=== PATIENT | female | born 1965 | race Caucasian/White ===

== ENCOUNTER 2025-03-24 15:23 | Outpatient (CLI) | payer BC, SELFPAY ==
--- OUTSIDE RECORDS SUMMARY | 2025-03-24 15:27 | XMS_ITS | Encounter Summary ---
Author Organization [facility] Address [address] [place] [address] Care Team Providers Care Label Coder Name Role Phone Angela Casper MD Primary Care Provider [phone] Encounter Details Date Type Department Care Team (Late st Contact Info) Description 03/24/2012 Telephone [facility] [address] [place] [address] Vidal Miguel PA-C [address] [place] [id number] Social History Tobacco Use Types Packs/Day Years Used Date Smoking Tobacco: Former Cigarettes 1 20 0 02/20/1992 - 02/20/2012 Smokeless Tobacco: Never Alcohol Use Standard Drinks/Week Comments No 0 (1 standard drink = 0.6 oz pur e alcohol) Comments No Sex and Gender Information Value Date Recorded Sex Assigned at Not on file Legal Sex Female 11:21 PM EST Gender Identity Not on file Sexual Orientation Not on file documented as of this encounter Functional Status * Encounter Vitals Question Answer Date of Assessment Author BP 140/80 03/26/2012 10:33 AM EDT Kristi Amador LPN Pulse 66 03/26/2012 10:33 AM EDT Kristi Amador LPN Resp 16 03/26/2012 10:33 AM EDT Kristi Amador LPN Weight 2640 03/26/2012 10:33 AM EDT Kristi Amador LPN documented as of this encounter Mental Status * Question Answer Entry Date Author BP 140/80 03/26/2012 10:33 AM EDT Kristi Amador LPN Pulse 66 03/26/2012 10:33 AM EDT Kristi Amador LPN Resp 16 03/26/2012 10:33 AM EDT Kristi Amador LPN documented in this encounter Miscellaneous Notes * Telephone Encounter - Kristi Chapin - 03/24/2012 3:01 PM EDT Tommie's pulse ox report is scanned into media documented in this encounter Plan of Treatment Not on file documented as of this encounter Visit Diagnoses Not on filedocumented in this encounter Care Teams Label Coder Relationship Specialty Start Date End Date Angela Casper MD [address] [place] [address] [address] [place] [address] PCP - General Family Medicine 01/09/11 documented as of this encounter
--- OUTSIDE RECORDS SUMMARY | 2025-03-24 15:27 | XMS_ITS | Encounter Summary ---
Author Organization [facility] Address [address] [place] [address] Care Team Providers Care Practice Support Specialist Name Role Phone Angela Casper MD Primary Care Provider [phone] Reason for Visit * Reason Onset Date Comments Medications Refill 09/26/2011 Encounter Details Date Type Department Care Team (Late st Contact Info) Description 09/26/2011 Refill [facility] [address] [place] [address] [address] [place] [address] Kristina Hayes LPN Medications Refill Social History Tobacco Use Types Packs/Day Years Used Date Smoking Tobacco: Some Days Cigarettes 1 20 Alcohol Use Standard Drinks/Week Comments No 0 (1 standard drink = 0.6 oz pur e alcohol) Comments No Sex and Gender Information Value Date Recorded Sex Assigned at Not on file Legal Sex Female 11:21 PM EST Gender Identity Not on file Sexual Orientation Not on file documented as of this encounter Plan of Treatment Not on file documented as of this encounter Visit Diagnoses Diagnosis Hypertension Unspecified essential hypertension Hyperlipidemia Other and unspecified hyperlipidemia Tobacco abuse Tobacco use disorder documented in this encounter Care Teams Practice Support Specialist Relationship Specialty Start Date End Date Angela Casper MD [facility] [address] [place] [address] PCP - General Family Medicine 01/09/11 documented as of this encounter
--- OUTSIDE RECORDS SUMMARY | 2025-03-24 15:27 | XMS_ITS | Clinical Summary ---
Author Organization [facility] Address [address] [place] [address] Care Team Providers Care Window Cutter Name Role Phone Twila Zuniga PA-C Primary Care Provider [phone] Allergies No known active allergies Medications aspirin 325 MG tablet Take 325 mg by mouth. 01/11/2011 Active DULoxetine (CYMBALTA) 60 MG capsule 1 Tab Daily. Active hydrochlorothiaz elias (HYDRODIURIL) 50 MG tablet Take 50 mg by mouth. 07/01/2013 Active metoprolol succinate XL (TOPROL-XL) 25 MG 24 hr tablet Take by mouth. Active potassium chloride (MICRO-K) 10 MEQ CR capsule Take 10 mEq by mouth. 10/22/2012 Active vilazodone (VIIBRYD) 20 MG tablet tablet Take 20 mg by mouth Daily. Active amphetamine-dext roamphetamine (ADDERALL) 20 MG tablet Take 20 mg by mouth 2 (Two) Times a Day. Active docusate sodium (COLACE) 50 MG capsule Take by mouth 2 (Two) Times a Day. Active CALCIUM-VITAMIN D PO Take 600 mg by mouth Daily. Active Active Problems Problem Noted Date Diagnosed Date Hypertension 04/24/2017 Hyperlipidemia 04/24/2017 Anxiety 04/24/2017 Depression 04/24/2017 History of IBS 04/24/2017 Family History Medical History Relation Name Comments Ovarian cancer Other Great Aunt Breast cancer Neg Hx Relation Name Status Comments Other Social History Tobacco Use Types Packs/Day Years Used Date Smoking Tobacco: Some Days Cigarettes Smokeless Tobacco: Never Tobacco Cessation:Ready to Q uit: Yes; Counseling Given: Yes Abuse Screen Answer Date Recorded Unsafe at Home or Work/School Not on file Feels Threatened by Someone? Not on file 01/2023 Does Anyone Keep You from Co ntacting Others or Doint Things Outside the Home? Not on file 03/03/2023 Physical Sign of Abuse Present Not on file 1 Housing Stability Answer Date Recorded Current Living Arrangements Not on file 01/2023 Potentially Unsafe Housing Conditions Not on aman e 03/03/2023 Family and Community Support Answer Timi e Recorded Help with Day-to-Day Activities Not on file 03/03/2023 Lonely or Isolated Not on file 03/03/2023 Employment Answer Date Recorded Do you want help finding or keeping work or a misti b? Not on file 03/03/2023 Disabilities Answer Date Recorded Concentrating, Remembering, or Making Decisions Difficulty Not on file 03/03/2023 Doing Errands Independently Difficulty Not on fi le 03/03/2023 Education Answer Date Recorded Help with school or training? Not on file Preferred Language Not on file 03/03/2023 Comments No Sex and Gender Information Value Date Recorded Sex Assigned at Not on file Legal Sex Female 10:21 AM EDT Gender Identity Not on file Sexual Orientation Not on file Last Filed Vital Signs Vital Sign Reading Time Taken Comments Blood Pressure 142/90 04/24/2017 9:23 AM EST Pulse 98 04/24/2017 9:23 AM EST Temperature 37.2 C (99 F) 04/24/2017 9:23 AM EST Respiratory Rate - - Oxygen Saturation 98% 04/24/2017 9:23 AM EST Inhaled Oxygen Concentration - - Weight 59 kg (130 lb) 04/24/2017 9:23 AM EST Height 170.2 cm (5' 7 ) 04/24/2017 9:23 AM EST Body Mass Index 20.36 04/24/2017 9:23 AM EST Plan of Treatment Health Maintenance Due Date Last Done Comments Annual Gynecologic Pelvic an d Breast Exam 1965 TDAP/TD VACCINES (1 - Tdap) 08/26/1982 COLOGUARD 08/26/2008 COLON CANCER SCREENING 5 YEA R SIGMOIDOSCOPY 08/26/2008 COLONOSCOPY 08/26/2008 COLORECTAL CANCER SCREENING 08/26/2008 CT COLONOGRAPHY 08/26/2008 FECAL OCCULT BLOOD TEST 08/26/2008 FIT Testing (1 year) 08/26/2008 Pneumococcal Vaccine 50+ (1 of 1 - PCV) 08/26/2013 ZOSTER VACCINE (1 of 2) 08/26/2013 ANNUAL PHYSICAL 04/24/2017 LIPID PANEL 06/18/2018 06/18/2017 MAMMOGRAM 06/18/2019 06/18/2017, 04/26, 05/01/2015, Additional history exists INFLUENZA VACCINE 12/24/2024 HEPATITIS C SCREENING Completed 04/02/2017 Procedures Procedure Name Priority Date/Time Associated Diagnosis Comments LIPID PANEL Routine 06/18/2017 9:29 AM EST Dyslipidemia Fatigue, unspecified type MAMMO SCREENING DIGITAL TOMOSYNTHESIS BILATERAL W CAD Routine 06/18/2017 9:12 AM EST Visit for screening mammogram HEPATITIS PANEL, ACUTE Routine 7 2:01 PM EST Venereal disease contact from Last 3 Months or Most Recently Relevant to Health Maintenance Results * (ABNORMAL) Lipid Panel (06/18/2017 9:29 AM EST) Total Cholesterol 186 0 - 200 mg/dL 06/18/2017 1:40 PM EST [facility] Triglycerides 130 0 - 150 mg/dL 06/18/2017 1:40 PM EST [facility] HDL Cholesterol 62(H) 40 - 60 mg/dL 06/18/2017 1:40 PM EST [facility] LDL Cholesterol 117 0 - 130 mg/dL 06/18/2017 1:40 PM EST [facility] Blood Venipuncture / Unknown 06/18/2017 9:29 AM EST 06/18/2017 9:29 AM EST Narrative [facility] - 06/18/2017 1:40 PM EST Cholesterol Reference Ranges: Desirable < 200 mg/dL Borderline 200-239 mg/dL High Risk > 239 mg/dL Triglyceride Reference Ranges: Normal < 150 mg/dL Borderline 150-199 mg/dL High 200-499 mg/dL Very High > 499 mg/dL HDL Reference Ranges: Low < 40 mg/dL High > 59 mg/dL LDL Reference Ranges: Optimal < 100 mg/dL Near Optimal 100-129 mg/dL Borderline 130-159 mg/dL High 160-189 mg/dL Very High > 189 mg/dL us Daphne Andersen MD LAB BLOOD ORDERABLES Final Result [facility]
[address] [place] [address], [place] [phone] * Mammo Screening Digital Tomosynthesis Bilateral With CAD (06/18/2017 9:12 AM EST) Anatomical Region Laterality Modality Breast N/A Mammography 06/18/2017 1:11 PM EST Impressions 06/18/2017 1:12 PM EST Benign screening mammogram. No findings suspicious for malignancy. ACR BI-RADS CATEGORY: 2, BENIGN RECOMMENDATION: Yearly mammogram, yearly clinical breast exam, and encourage self breast awareness. CAD was used. The standard false negative rate of mammography is between 10% and 25%. Complex patterns or increased breast density will markedly elevate the false negative rate of mammography. A letter, in lay terminology, with the results of this exam will be mailed to the patient. If there is a palpable area of concern, biopsy should be considered regardless of imaging findings. This report was finalized on 06/18/2017 1:[address] Marlene Salcedo MD. Narrative 06/18/2017 1:12 PM EST ROUTINE DIGITAL SCREENING MAMMOGRAM WITH TOMOSYNTHESIS HISTORY: Routine screening. IMAGE COMPARISON: 05/22/2015, 05/01/2015, 04/29/2014. TECHNIQUE: Low dose full field digital breast tomosynthesis examination was performed with 2D and 3D acquisitions. FINDINGS: The breasts are heterogeneously dense, which may obscure small masses. There are bilateral innumerable scattered punctate and amorphous calcifications. These appear not significantly changed. There is no mass, worrisome microcalcifications, or architectural distortion to suggest development of malignancy. us Daphne Andersen MD IMG MAMMOGRAPHY ORDERABLES Final Result * Hepatitis Panel, Acute (04/02/2017 2:01 PM EST) Hepatitis B Surface Ag Non-Reacti ve Non-Reacti ve 04/02/2017 8:37 PM EST [facility] Hep A IgM Non-Reacti ve Non-Reacti ve 04/02/2017 8:37 PM EST [facility] Hep B C IgM Non-Reacti ve Non-Reacti ve 04/02/2017 8:37 PM EST [facility] Hepatitis C Ab Non-Reacti ve Non-Reacti ve 04/02/2017 8:37 PM EST [facility] Blood Venipuncture / Unknown 04/02/2017 2:01 PM EST 04/02/2017 2:01 PM EST us Daphne Andersen MD LAB BLOOD ORDERABLES Final Result [facility]
[address] [place] [address], from Last 3 Months or Most Recently Relevant to Health Maintenance [place] [address] Care Teams Window Cutter Relationship Specialty Start Date End Date Twila Zuniga PA-C [address] [place] [address] [address] [place] [address] PCP - General Family Medicine 04/24/17
--- OUTSIDE RECORDS SUMMARY | 2025-03-24 15:27 | XMS_ITS | Encounter Summary ---
Author Organization [facility] Address [address] [place] [address] Care Team Providers Care Ramp Service Man Name Role Phone Angela Casper MD Primary Care Provider [phone] Reason for Visit * Reason Onset Date Comments Medications Refill 09/03/2011 Encounter Details Date Type Department Care Team (Late st Contact Info) Description 09/03/2011 Refill I CARDIOLOGY [address] [address] Sanju Gambino LPN Medications Refill Social History Tobacco Use [...] Question Answer Date of Assessment Author BP 162/100 09/03/2011 1:06 PM EDSanju Suazo LPN Pulse 93 09/03/2011 1:06 PM EDT Sanju Neal LPN Resp 18 09/03/2011 1:06 PM EDT Sanju Neal LPN SpO2 97 09/03/2011 1:06 PM EDT Sanju Neal LPN Height 66.000 09/03/2011 1:06 PM EDT Sanju Neal LPN Weight 2608 09/03/2011 1:06 PM EDT Sanju Neal LPN documented as of this encounter Mental Status * Question Answer Entry Date Author BP 162/100 09/03/2011 1:06 PM EDT Sanju Neal LPN Pulse 93 09/03/2011 1:06 PM EDT Sanju Neal LPN Resp 18 09/03/2011 1:06 PM EDT Sanju Neal LPN SpO2 97 09/03/2011 1:06 PM EDT Sanju Neal LPN documented in this encounter Plan of Treatment Not on file documented as of this encounter Visit Diagnoses Not on filedocumented in this encounter Care Teams Ramp Service Man Relationship Specialty Start Date End Date Angela Casper MD [address] [place] [address] [address] [place] [address] PCP - General Family Medicine 01/09/11 documented as of this encounter
--- OUTSIDE RECORDS SUMMARY | 2025-03-24 15:27 | XMS_ITS | Clinical Summary ---
Author Organization [facility] Address [address] [place] [address] Care Team Providers Care Manufacturing Process Engineer Name Role Phone Angela Casper MD Primary Care Provider [phone] Allergies No known active allergies Medications aspirin (ASPIRIN) 325 mg tabletIndicatio ns:Hypertension ,Hyperlipidemia ,Tobacco abuse Take 1 Tab by mouth Daily. 3 01/11/2011 Active metoprolol (TOPROL-XL) 25 mg XL tablet Take 25 mg by mouth. Active hydrochlorothia zide (HYDRODIURIL) 50 mg tabletIndicatio ns:Hypertension Take 1 Tab by mouth Daily. 30 Tab 6 07/01/2013 Active potassium chloride SA (K-DUR, KLOR-CON M20) 20 mEq tablet Take 20 mEq by mouth Daily. Active atorvastatin (LIPITOR) 40 mg tablet Take 40 mg by mouth At bedtime. Active pantoprazole (PROTONIX) [address] tablet Take 40 mg by mouth Daily. Active clotrimazole (LOTRIMIN) 1 % cream by Topical route Twice a day. Active Hospital, Clinic, or Other Facility Administered Medication Ordered Dose Route Frequency Start Date End Date Status kit prep of [id number] 10 millicurie 10 millicurie IV Once in imaging 10/23/2018 Active kit prep of [id number] 30 millicurie 30 millicurie IV Once in imaging 10/23/2018 Active Active Problems Problem Noted Date Diagnosed Date Tobacco abuse 01/09/2011 Hypertension Hyperlipidemia Mitral (valve) prolapse Colitis Hiatal hernia Family History Medical History Relation Name Comments Heart Disease Father Heart Disease Maternal Aunt Relation Name Status Comments Father Maternal Aunt Alive Mother Social History Tobacco Use Types Packs/Day Years Used Date Smoking Tobacco: Every Day Cigarettes 0.5 20 Started: 02/20/1992; Last attempted to quit: 02/20/2012 Smokeless Tobacco: Never Alcohol Use Standard Drinks/Week Comments No 0 (1 standard drink = 0.6 oz pur e alcohol) Comments No Sex and Gender Information Value Date Recorded Sex Assigned at Not on file Legal Sex Female 11:21 PM EST Gender Identity Not on file Sexual Orientation Not on file Last Filed Vital Signs Vital Sign Reading Time Taken Comments Blood Pressure 126/74 10/29/2018 3:52 PM EDT Pulse 70 10/29/2018 3:52 PM EDT Temperature 36.9 C (98.5 F) 01/11/2011 7:44 AM EDT Respiratory Rate 14 10/29/2018 3:52 PM EDT Oxygen Saturation 98% 10/29/2018 3:52 PM EDT Inhaled Oxygen Concentration - - Weight 65.3 kg (144 lb) 10/29/2018 3:52 PM EDT Height 170.2 cm (5' 7 ) 10/29/2018 3:52 PM EDT Body Mass Index 22.55 10/29/2018 3:52 PM EDT Plan of Treatment Health Maintenance Due Date Last Done Comments COLOGUARD 1965 COLONOSCOPY 1965 Colorectal Screening Combination 1963 FIT 1963 HEP C SCREENING 1963 PAP SMEAR EVERY 3 YR (Cervic al Cancer Screen) 1963 SIGMOIDOSCOPY 1963 ANNUAL WELLNESS EXAM 08/26/1966 DTAP/TDAP/TD VACCINE (1 - Tdap) 08/26/1982 Shingles Vaccine (Shingrix) (1 of 2) 08/26/2013 INFLUENZA VACCINE (#1) 2025 CT Colonography Completed HEP A VACCINE Aged Out No longer elig ible based on patient's age to complete this topic HIB VACCINE Aged Out No longer eligi ble based on patient's age to complete this topic ROTOVIRUS VACCINE Aged Out No longer eligible based on patient's age to complete this topic Insurance [facility] Advance Directives * Full Code (Latest Code Status on File) Date Activated Date Inactivated Comments 01/11/2011 10:07 AM 01/12/2011 12:47 AM * Full Code Date Activated Date Inactivated Comments 01/11/2011 7:39 AM 01/11/2011 10:07 AM Care Teams Manufacturing Process Engineer Relationship Specialty Start Date End Date Angela Casper MD [address] [place] [address] [address] [place] [address] PCP - General Family Medicine 01/09/11
--- OUTSIDE RECORDS SUMMARY | 2025-03-24 15:27 | XMS_ITS | Clinical Summary ---
Author Organization [facility] Address [address] [place] [address] Care Team Providers Care Inside Sales Coordinator Name Role Phone CasperAngela Rossana COBOS Primary Care Provider [phone] Family History Medical History Relation Name Comments Alcohol abuse Other 1 Cardiac disorder Other 2 Hypertension Other 3 Scoliosis Other 4 Relation Name Status Comments Other 1 Other 2 Other 3 Other 4 Social History Tobacco Use Types Packs/Day Years Used Date Smoking Tobacco: Every Day Alcohol Use Standard Drinks/Week Comments No 0 (1 standard drink = 0.6 oz pur e alcohol) Comments Unknown Sex and Gender Information Value Date Recorded Sex Assigned at Not on file Legal Sex Female 6:23 PM EDT Gender Identity Not on file Sexual Orientation Not on file Last Filed Vital Signs Vital Sign Reading Time Taken Comments Blood Pressure - - Pulse - - Temperature - - Respiratory Rate - - Oxygen Saturation - - Inhaled Oxygen Concentration - - Weight 62.6 kg (138 lb 0.1 oz) 08/21/2016 10:47 AM EDT Height 167.6 cm (5' 6 ) 08/21/2016 10:47 AM EDT Body Mass Index 22.28 08/21/2016 10:47 AM EDT Plan of Treatment Upcoming Encounters Date Type Department Care Team (Late st Contact Info) Description 10/05/2025 2:30 PM EDT Ovarian Cancer Screening [facility] Gynecology [address] [place] [address] Health Maintenance Due Date Last Done Comments [facility]-Depression Screening 1965 [facility]-HIV Screening 1963 [facility]-Hepatitis C Screening 1963 [facility]-Infant/Child/Adol SDOH Screenings 1963 [facility]- SDOH Screenings 08/26/1981 [facility]-Adult SDOH Screenings 08/26/1981 [facility]-DTaP,Tdap,and Td Vaccines (1 - Tdap) 08/26/1982 CT Colonography 08/26/2008 Colonoscopy 08/26/2008 FIT-DNA 08/26/2008 FIT 08/26/2008 FOBT 08/26/2008 Sigmoidoscopy 08/26/2008 [facility]-Colorectal Cancer Screening 08/26/2008 [facility]-Pneumococcal Vaccine: 50+ Years (1 of 1 - PCV) 08/26/2013 [facility]-Zoster Vaccines (1 of 2) 08/26/2013 [facility]-Breast Cancer Screening 06/18/201905/27, 06/18/2017, 05/01/2015, Additional history exists [id number] Vaccine ( - 2023- season) 2025 [facility]-Influenza Vaccine (#1) 2025 [facility]-RSV Vaccine: 60+ Years or (1 - 1-dose 75+ series) 08/26/2038 HPV Vaccines Aged Out No longer eligi ble based on patient's age to complete this topic [facility]-HIB Vaccines Aged Out No longer e ligible based on patient's age to complete this topic [facility]-Hepatitis A Vaccines Aged Out No longer eligible based on patient's age to complete this topic [facility]-IPV Vaccines Aged Out No longer e ligible based on patient's age to complete this topic [facility]-Rotavirus Vaccines Aged Out No lo nger eligible based on patient's age to complete this topic Insurance [facility] Care Teams Inside Sales Coordinator Relationship Specialty Start Date End Date Angela Casper MD [address] [place] [address] PCP - General 04/24/21
--- OUTSIDE RECORDS SUMMARY | 2025-03-24 15:27 | XMS_ITS | Clinical Summary ---
Author Organization [facility] Address [address] [place] [address] Care Team Providers Care Human Resources Manager Name Role Phone Yusuf Benítez MD Primary Care Provider [phone] Allergies No known active allergies Medications atorvastatin (Lipitor) 40 MG tablet Take 1 tablet (40 mg) by mouth in the morning. Active potassium chloride CR (Klor-Con M20) 20 MEQ ER tablet Take 1 tablet (20 mEq) by mouth. Active hydroCHLOROthiaz elias (HYDRODiuril) 50 MG tablet 05/08/2023 Active atomoxetine (Strattera) 40 MG capsule 03/05/2023 Active metoprolol succinate XL (Toprol-XL) 25 MG 24 hr tablet Take 1 tablet (25 mg) by mouth in the morning. Active fluconazole (Diflucan) 150 MG tablet Take 1 tablet (150 mg) by mouth if needed (1 tablet every 3 days, as needed, for yeast infection). 3 tablet 08/11/2024 Active Active Problems No known active problems Social History Tobacco Use Types Packs/Day Years Used Date Smoking Tobacco: Every Day Cigarettes Smokeless Tobacco: Never Tobacco Cessation:Ready to Q uit: Not Asked; Counseling Given: Not Answered Alcohol Use Standard Drinks/Week Comments Never 0 (1 standard drink = 0.6 oz pur e alcohol) Comments Unknown Sex and Gender Information Value Date Recorded Sex Assigned at Female 08/01/2021 11:22 AM EST Legal Sex Female 11:22 AM EST Gender Identity Female 08/01/2021 11:22 AM EST Sexual Orientation Not on file Occupation Industry Job Start Date Job End Date formerly [employer] [employer] Not on file Not on file Not on file Last Filed Vital Signs Vital Sign Reading Time Taken Comments Blood Pressure 157/92 08/11/2024 7:11 PM EDT Pulse 96 08/11/2024 7:11 PM EDT Temperature 37.2 C (99 F) 08/11/2024 7:11 PM EDT Respiratory Rate 16 08/11/2024 7:11 PM EDT Oxygen Saturation 96% 08/11/2024 7:11 PM EDT Inhaled Oxygen Concentration - - Weight 67 kg (147 lb 12.8 oz) 08/11/2024 7:11 PM EDT Height 170.2 cm (5' 7 ) 08/11/2024 7:11 PM EDT Body Mass Index 23.15 08/11/2024 7:11 PM EDT Plan of Treatment Health Maintenance Due Date Last Done Comments CT Colonography 1963 ColoGuard Screening 1963 Colonoscopy 1963 Colorectal Cancer Screening 1963 FIT-DNA 1963 FIT 1963 FOBT 1963 Sigmoidoscopy 1963 MMR Vaccines (1 of 1 - Stand candace series) 08/26/1964 DTaP/Tdap/Td Vaccines (1 - Tdap) 08/26/1982 Pneumococcal Vaccine (1 of 2 - PCV) 08/26/1982 Pap Smear 08/26/1984 Cervical Cancer Screening 08/26/1993 HPV/Cotest 08/26/1993 Mammogram 06/18/2018 06/18/2017 RSV 60+ and patient s (1 - Risk 60-74 years 1-dose series) 2023 Influenza Vaccine (#1) 2025 RSV under 20 month Aged Out No longer eligible based on patient's age to complete this topic Insurance [facility] PPO/HMO Care Teams Human Resources Manager Relationship Specialty Start Date End Date Yusuf Benítez MD [address] [place] [address] PCP - General
[2025-03-24 16:17] LABS: Hematocrit 44.3 % (37.0-47.0); Hemoglobin 14.0 g/dL (12.2-16.2); Immature Granulocytes % 0.3 %; Mean Corpuscular HGB Conc 31.6 g/dL (31.8-35.4); Mean Corpuscular Hemoglobin 30.2 pg (27.0-31.2); Mean Corpuscular Volume 95.7 fl (81-99); Nucleated Red Blood Cells % 0 %; Platelet Count 311 K/mm3 (142-424); Red Blood Count 4.63 M/mm3 (4.20-5.40); Red Cell Distribution Width-SD 46.9 fL; White Blood Count 8.7 K/mm3 (4.8-10.8)
[2025-03-24 16:39] LABS: D-Dimer 0.61 ug/mL (0.0-0.5)
[2025-03-24 17:01] LABS: Alanine Aminotransferase 43 U/L (12-78); Alkaline Phosphatase 89 U/L (38-126); Aspartate Amino Transferase 52 U/L (14-36); Bilirubin,Direct 0.0 mg/dl (0.0-0.4); Bilirubin,Indirect 0.4 mg/dL (0.0-0.9); Bilirubin,Total 0.4 mg/dl (0.2-1.3); Bilirubin,Unconjugated 0.4 mg/dL (0.0-1.1); Blood Urea Nitrogen 11 mg/dl (7-17); Calcium 9.5 mg/dl (8.4-10.2); Carbon Dioxide 30 mmol/L (22.0-30.0); Cholesterol 179 mg/dl (140-200); Creatinine,Serum 0.60 mg/dl (0.52-1.04); Estimated Glomerular Filt Rate 102 ml/min (>60); GFR (African American) 123 ML/MIN (>60); Glucose 85 mg/dl (74-100); Magnesium 1.7 mg/dl (1.6-2.3); Total Protein,Serum 7.6 g/dl (6.3-8.2); Triglycerides 131 mg/dl (30-150)
[2025-03-24 17:02] LABS: HDL Cholesterol 69 mg/dl (40-60)
[2025-03-24 17:19] LABS: Free T4 (Free Thyroxine) 1.22 ng/dl (0.78-2.19)
[2025-03-24 17:32] LABS: Thyroid Stimulating Hormone 0.65 uIU/mL (0.465-4.68)
[2025-03-24 17:57] LABS: Albumin Level 3.9 g/dl (3.5-5.0); Anion Gap 12.7 mEq/L (5-15); Chloride 100 mmol/L (98-107); Potassium 3.7 mmoL/L (3.5-5.1); Sodium 139 mmol/L (136-145)
== END 2025-03-24 23:59 | disposition home or self-care (01) ==
LOC: LAB 15:25
PROVIDERS: Visit Provider Internal Medicine
DX: I25.10 Atherosclerotic heart disease of native coronary artery without angina pectoris (principal); I10 Essential (primary) hypertension; E78.5 Hyperlipidemia, unspecified; R60.0 Localized edema
CPT/HCPCS: 36415; 80048; 80061; 80076; 83735; 84439; 84443; 85025; 85378

== ENCOUNTER 2025-03-25 14:33 | Outpatient (CLI) | payer BC, SELFPAY ==
--- NOTE | 2025-03-25 14:30 | CT_ITS ---
FINAL REPORT TECHNIQUE: The patient was injected with IV contrast. Axial images were obtained through the chest in a PE protocol. 3-D reconstruction images were also performed. Individualized dose reduction techniques using automated exposure control or adjustment of the MA and/or KV according to patient's size were employed. CLINICAL HISTORY: elevated d dimer COMPARISON: None FINDINGS: Mediastinal vasculature is adequately opacified. No pulmonary artery filling defects are identified to suggest PE. There is no aortic aneurysm or dissection. There is no axillary adenopathy. There is no hilar or mediastinal adenopathy. The heart size is normal. There is no pericardial or pleural effusion. Limited images of the upper abdomen are unremarkable. There is a posterior right upper lobe nodule, noncalcified, best seen on image #27 of series 3. IMPRESSION: No pulmonary embolus, or aortic aneurysm or dissection. 4 mm noncalcified nodule in the posterior right upper lobe, recommend follow-up CT of the chest in 1 year by Fleischner's criteria. Reviewed, Interpreted and Dictated by Binh Infante MD Transcribed by Lea Ling Authenticated and [facility]
--- OUTSIDE RECORDS SUMMARY | 2025-03-25 14:36 | XMS_ITS | Encounter Summary ---
Author Organization [facility] Address [address] [place] [address] Care Team Providers Care Bag Loader Machine Operator Name Role Phone Angela Casper MD Primary Care Provider [phone] Encounter Details Date Type Department Care Team (Late st Contact Info) Description 03/24/2012 Telephone [facility] CARDIOLOGY [address] [place] [address] Vidal Miguel PA-C [address] [place] [address] Social History Tobacco Use Types Packs/Day [...] on filedocumented in this encounter Care Teams Bag Loader Machine Operator Relationship Specialty Start Date End Date Angela Casper MD [address] [place] [address] [address] [place] [address] PCP - General Family Medicine 01/09/11 documented as of this encounter
--- OUTSIDE RECORDS SUMMARY | 2025-03-25 14:36 | XMS_ITS | Clinical Summary ---
Author Organization [facility] n[facility] Address [address] [place] [address] Care Team Providers Care Hosiery Looper Name Role Phone Yusuf Benítez MD Primary Care Provider [phone] Allergies No known active allergies Medications atorvastatin [...] Industry Job Start Date Job End Date [employer] Not on file Not on file Not [...] patient's age to complete this topic Insurance [facility] PPO/HMO Care Teams Hosiery Looper Relationship Specialty Start Date End Date Yusuf Benítez MD [address] [place] [address] PCP - General
--- OUTSIDE RECORDS SUMMARY | 2025-03-25 14:36 | XMS_ITS | Encounter Summary ---
Author Organization [facility] Address [address] [place] [address] Care Team Providers Care Lacer And Tier Name Role Phone Angela Casper MD Primary Care Provider [phone] Reason for Visit * Reason Onset Date Comments Medications Refill 09/03/2011 Encounter Details Date Type Department Care Team (Late st Contact Info) Description 09/03/2011 Refill I CARDIOLOGY [address] [address] Sanju Gambino LPN Medications Refill [...] on filedocumented in this encounter Care Teams Lacer And Tier Relationship Specialty Start Date End Date Angela Casper MD [address] [place] [address] [place] [address] PCP - General Family Medicine 01/09/11 documented as of this encounter
--- OUTSIDE RECORDS SUMMARY | 2025-03-25 14:36 | XMS_ITS | Clinical Summary ---
Author Organization [facility] Address [address] [place] [address] Care Team Providers Care Supervisor Painting Shipyard Name Role Phone Twila Zuniga PA-C Primary Care Provider [phone] Allergies No known active allergies Medications aspirin [...] - 200 mg/dL 06/18/2017 1:40 PM EST LABORATORY Triglycerides 130 0 - 150 mg/dL 06/18/2017 1:40 PM EST LABORATORY HDL Cholesterol 62(H) 40 - 60 mg/dL 06/18/2017 1:40 PM EST LABORATORY LDL Cholesterol 117 0 - 130 mg/dL 06/18/2017 1:40 PM EST LABORATORY Blood Venipuncture / Unknown 06/18/2017 9:29 AM EST 06/18/2017 9:29 AM EST Narrative LABORATORY - 06/18/2017 1:40 PM EST Cholesterol [...] Andersen MD LAB BLOOD ORDERABLES Final Result LABORATORY
[address] [place] [address], [place] [phone] * Mammo Screening Digital Tomosynthesis Bilateral With [...] ve Non-Reacti ve 04/02/2017 8:37 PM EST LABORATORY Hep A IgM Non-Reacti ve Non-Reacti ve 04/02/2017 8:37 PM EST LABORATORY Hep B C IgM Non-Reacti ve Non-Reacti ve 04/02/2017 8:37 PM EST LABORATORY Hepatitis C Ab Non-Reacti ve Non-Reacti ve 04/02/2017 8:37 PM EST LABORATORY Blood Venipuncture / Unknown 04/02/2017 2:01 PM EST 04/02/2017 2:01 PM EST us Daphne Andersen MD LAB BLOOD ORDERABLES Final Result LABORATORY
[address] [place] [address], from Last 3 Months or Most Recently Relevant to Health Maintenance Insurance MEDICAID Care Teams Supervisor Painting Shipyard Relationship Specialty Start Date End Date Twila Zuniga PA-C [address] [place] [address] [address] [place] [address] PCP - General Family Medicine 04/24/17
--- OUTSIDE RECORDS SUMMARY | 2025-03-25 14:36 | XMS_ITS | Clinical Summary ---
Author Organization [facility] Address [address] [place] [address] Care Team Providers Care Child Support Investigator Name Role Phone CasperAngela Rossana COBOS Primary Care Provider [phone] Family History Medical History Relation Name Comments [...] 10/05/2025 2:30 PM EDT Ovarian Cancer Screening [facility] Gynecology [address] [facility] [place] [address] Health Maintenance Due Date Last Done Comments [...] Screening 06/18/201905/27, 06/18/2017, 05/01/2015, Additional history exists [id number] Vaccine ( - 2023- season) 2025 UKY-Influenza [...] age to complete this topic Insurance [facility] Care Teams Child Support Investigator Relationship Specialty Start Date End Date Angela Casper MD [address] [place] [address] [place] [address] PCP - General 04/24/21
--- OUTSIDE RECORDS SUMMARY | 2025-03-25 14:36 | XMS_ITS | Encounter Summary ---
Author Organization [facility] Address [address] [place] [address] Care Team Providers Care Food And Beverage Assistant Manager Name Role Phone Angela Casper MD Primary Care Provider [phone] Reason for Visit * Reason Onset Date Comments Medications Refill 09/26/2011 Encounter Details Date Type Department Care Team (Late st Contact Info) Description 09/26/2011 Refill [facility] [address] [place] [address] [address] [place] [address] Kristina Hayes LPN Medications Refill [...] disorder documented in this encounter Care Teams Food And Beverage Assistant Manager Relationship Specialty Start Date End Date Angela Casper MD [facility] [address] [place] [address] PCP - General Family Medicine 01/09/11 documented as of this encounter
--- OUTSIDE RECORDS SUMMARY | 2025-03-25 14:36 | XMS_ITS | Clinical Summary ---
Author Organization [facility] Address [address] [place] [address] Care Team Providers Care Printed Circuit Boards Solder Leveler Name Role Phone Angela Casper MD Primary Care Provider Allergies No known active allergies Medications aspirin [...] Date End Date Status kit prep of [id number] 10 millicurie 10 millicurie IV Once in imaging 10/23/2018 Active kit prep of [id number] 30 millicurie 30 millicurie IV Once in [...] patient's age to complete this topic Insurance [facility] BLUE [facility] Advance Directives * Full Code (Latest Code Status on File) Date Activated Date Inactivated Comments 01/11/2011 10:07 AM 01/12/2011 12:47 AM * Full Code Date Activated Date Inactivated Comments 01/11/2011 7:39 AM 01/11/2011 10:07 AM Care Teams Printed Circuit Boards Solder Leveler Relationship Specialty Start Date End Date Angela Casper MD [address] [place] [address] [address] [place] [address] PCP - General Family Medicine 01/09/11
[2025-03-25] MEDS: SODIUM CHLORIDE 0.9% 10ML SYR (RAD ONLY) 10 ML IV (15:07)
[2025-03-25] MEDS: IOPAMIDOL-370 (76%);100ML BOTTLE 85 ML IV (15:07)
[2025-03-25] MEDS: 0.9 % SODIUM CHLORIDE 50 ML VIAL IV (15:07)
== END 2025-03-25 23:59 | disposition home or self-care (01) ==
PROVIDERS: Visit Provider Physician Assistant
DX: I25.10 Atherosclerotic heart disease of native coronary artery without angina pectoris (principal); R91.1 Solitary pulmonary nodule; R79.89 Other specified abnormal findings of blood chemistry; R60.0 Localized edema; I10 Essential (primary) hypertension; E78.5 Hyperlipidemia, unspecified; R94.31 Abnormal electrocardiogram [ECG] [EKG]
CPT/HCPCS: 71275; Q9967

== ENCOUNTER 2025-03-31 12:24 | Outpatient (CLI) | payer BC, SELFPAY ==
--- OUTSIDE RECORDS SUMMARY | 2025-03-31 12:27 | XMS_ITS | Encounter Summary ---
Author Organization [facility] Address [address] [place] [address] Care Team Providers Care Oyster Grower Name Role Phone Angela Casper MD Primary Care Provider [phone] Reason for Visit * Reason Onset Date Comments Medications Refill 09/03/2011 Encounter Details Date Type Department Care Team (Late st Contact Info) Description 09/03/2011 Refill I CARDIOLOGY [address] [address] Sanju Gambino LPN Medications Refill [...] on filedocumented in this encounter Care Teams Oyster Grower Relationship Specialty Start Date End Date Angela Casper MD [address] [place] [address] [place] [address] PCP - General Family Medicine 01/09/11 documented as of this encounter
--- OUTSIDE RECORDS SUMMARY | 2025-03-31 12:27 | XMS_ITS | Encounter Summary ---
Author Organization [facility] Address [address] [place] [address] Care Team Providers Care Ice Guard Tester Name Role Phone Angela Casper MD Primary Care Provider [phone] Encounter Details Date Type Department Care Team (Late st Contact Info) Description 03/24/2012 Telephone [facility] CARDIOLOGY [address] [place] [address] Vidal Miguel PA-C [address] [place] [address] Social History Tobacco Use Types Packs/Day [...] on filedocumented in this encounter Care Teams Ice Guard Tester Relationship Specialty Start Date End Date Angela Casper MD [address] [place] [address] [address] [place] [address] PCP - General Family Medicine 01/09/11 documented as of this encounter
--- OUTSIDE RECORDS SUMMARY | 2025-03-31 12:27 | XMS_ITS | Clinical Summary ---
Author Organization [facility] n[facility] Address [address] [place] [address] Care Team Providers Care Rn Night Name Role Phone Yusuf Benítez MD Primary Care Provider [phone] Allergies No known active allergies Medications atorvastatin [...] Industry Job Start Date Job End Date [employer] Not on file Not on file Not [...] patient's age to complete this topic Insurance [facility] PPO/HMO Care Teams Rn Night Relationship Specialty Start Date End Date Yusuf Benítez MD [address] [place] [address] PCP - General
--- OUTSIDE RECORDS SUMMARY | 2025-03-31 12:27 | XMS_ITS | Encounter Summary ---
Author Organization [facility] Address [address] [place] [address] Care Team Providers Care Court Transcriber Name Role Phone Angela Casper MD Primary Care Provider [phone] Reason for Visit * Reason Onset Date Comments Medications Refill 09/26/2011 Encounter Details Date Type Department Care Team (Late st Contact Info) Description 09/26/2011 Refill [facility] [address] [place] [address] [address] [place] [address] Kristina Hayes LPN Medications Refill [...] disorder documented in this encounter Care Teams Court Transcriber Relationship Specialty Start Date End Date Angela Casper MD [facility] [address] [place] [address] PCP - General Family Medicine 01/09/11 documented as of this encounter
--- OUTSIDE RECORDS SUMMARY | 2025-03-31 12:27 | XMS_ITS | Clinical Summary ---
Author Organization [facility] Address [address] [place] [address] Care Team Providers Care Court Magistrate Name Role Phone Angela Casper MD Primary Care Provider [phone] Allergies No known active allergies Medications aspirin [...] Date End Date Status kit prep of [id number] 10 millicurie 10 millicurie IV Once in imaging 10/23/2018 Active kit prep of [id number] 30 millicurie 30 millicurie IV Once in [...] patient's age to complete this topic Insurance [facility] BLUE [facility] Advance Directives * Full Code (Latest Code Status on File) Date Activated Date Inactivated Comments 01/11/2011 10:07 AM 01/12/2011 12:47 AM * Full Code Date Activated Date Inactivated Comments 01/11/2011 7:39 AM 01/11/2011 10:[address] Relationship Specialty Start Date End Date Angela Casper MD [address] [place] [address] [address] [place] [address] PCP - General Family Medicine 01/09/11
--- NOTE | 2025-03-31 13:00 | CA_ITS ---
APPROVED REPORT EXAM: Comprehensive 2D, Doppler, and color-flow Echocardiogram Picking Belt Operator: Klyah Machuca, RCS, RVS Ht: 5 ft 7 in Wt: 143lbs BSA: 1.75 BP: 168/96 mmHg Indications: CP, CAD-coronary stent, Family H/O HD, H/O MVP, Smoker, Fatigue 2D Dimensions IVSd 0.88 cm LVEF (Visual) 46.50 % PWd 0.97 cm LA Volume 35.50 mL LVDd 3.93 cm LA Volume Index 19.70 mL/m2 (M/F) 16-34 LVDs 3.03 cm Left Atrium 2.82 cm M-Mode Dimensions RVDd 2.13 cm (0.9-2.6) LVDd 4.49 cm (3.5-5.7) LVDs 2.28 cm (3.5-5.7) IVSd 0.95 cm (0.6-1.1) PWd 1.03 cm (0.6-1.1) EF (Teich) 80.80% EPSs 0.50 cm FS 49.20% EDV (Teich) 92.00 mL ESV (Teich) 17.70 mL LV Diastology E Decel Time 207 (160-240 msec) E/A Ratio 1.11 MED A' 10.80 cm/s LAT A' 13.00 cm/s Aortic Valve RYLEY Index 1.44 cm2/m2 AoV Peak Dusty. 127.0 (50-130 cm/s) AO Peak GR. 6.40 mmHg AO Mean GR. 3.20 (<5 mmHg) AO VTI 25.9 (18-25 cm) RYLEY (VTI) 2.59 (2.5-4.5 cm2) Mitral Valve MV A Velocity 64.0 (40-130 cm/s) E/A Ratio 1.11 Pulmonary Valve PV Peak Velocity 87.0 (50-150 cm/s) Left Ventricle The left ventricle is normal size. Left ventricular systolic function is normal. The left ventricular ejection fraction is within the normal range. There is normal left ventricular wall thickness. There is normal LV segmental wall motion. The left ventricular diastolic function is normal. LVEF is 55% Right Ventricle The right ventricle is normal size. The right ventricular systolic function is normal. Atria The left atrium size is normal. The right atrium size is normal. There is no color Doppler evidence of interatrial shunt. Aortic Valve The aortic valve opens well. There is no hemodynamically significant aortic valvular stenosis. No aortic regurgitation is present. Mitral Valve There is bileaflet prolapse of the mitral valve leaflets. Just No evidence of mitral valve stenosis. Trace mitral regurgitation is present. Tricuspid Valve The tricuspid valve leaflets are thin and pliable. Trace tricuspid regurgitation. There is insufficient TR jet to estimate RVSP. Pulmonic Valve The pulmonary valve is grossly normal in structure. Trace pulmonic valve regurgitation is present. Great Vessels The aortic root is normal in size. IVC is normal in size and collapses >50% with inspiration. Pericardium There is no pericardial effusion. Other Information Study Quality: Fair Conclusion Normal biventricular systolic function. Bileaflet MV prolapse is present. No significant valvular stenosis or regurgitation. Electronically signed by : Daniella Rios MD 04/11/2025 12:15:41
== END 2025-03-31 23:59 | disposition home or self-care (01) ==
LOC: RT 12:25
PROVIDERS: Visit Provider Internal Medicine
DX: I34.1 Nonrheumatic mitral (valve) prolapse (principal); I25.10 Atherosclerotic heart disease of native coronary artery without angina pectoris; F17.200 Nicotine dependence, unspecified, uncomplicated; I10 Essential (primary) hypertension; E78.5 Hyperlipidemia, unspecified; R60.0 Localized edema; Z95.5 Presence of coronary angioplasty implant and graft
CPT/HCPCS: 93306